=== PATIENT | male | born 1945 | race Caucasian/White ===

== ENCOUNTER 2016-07-20 09:41 | Observation (INO) | payer MEDICARE, OTHER ==
[~2016-07-20] VITALS: Ht 180.3 cm; Wt 93.3 kg
[2016-07-20 09:43] VITALS: BP 136/73; PULSE 111; RESP 28; O2SAT 97
--- NOTE | 2016-07-20 09:51 | ED.REPORT ---
HPI-General Illness Date of Service Jul 20, 2016 ED Provider: Dr. Fagan Pt is a 71 y/o male w/ a hx of adrenal insufficiency on [facility]cc steroid therapy presenting to the ED with his with multiple medical complaints onset 2 days ago. He c/o sore throat, nasal congestion, fever, shaking chills, chest tightness, pleuritic pain, shortness of breath, cough, diarrhea, generalized weakness. Pt denies nausea, vomiting, abdominal pain, rash. He recently doubled his doses of steroids 2 days ago because his PCP told him that if he felt ill he should do that. He has presented in adrenal crisis previously and believes his current condition to be similar but they believe he is early on in the disease process this episode. He has sick contacts with Influenza. 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 Physical Exam Vital Signs Vital Signs Date Time Temp Pulse Resp B/P Pulse Ox O2 Delivery O2 Flow Rate FiO2 07/20/16 11:03 91 27 108/49 92 Room Air 07/20/16 09:43 37.8 111 28 136/73 97 Room Air Initial VS: Reviewed, Vital signs abnormal Head / Eyes: Atraumatic, Normocephalic, PERRL Extremities: Vascular intact, Neuro intact, No swelling, No tenderness Psychiatric: Mood/affect normal, Behavior normal, Normal thought content General/Constitutional: Awake, Alert, Cooperative, Not toxic appearing Appearance / Presentation: Positive: Ill appearing/not toxic, Uncomfortable ENT: Atraumatic, Airway patent Mouth: Positive: Mucous membranes dry Pharynx / Tonsils / Uvula: Positive: Pharyngeal erythema, Negative: Tonsillar exudate L, Tonsillar exudate R, Tonsillar swelling L, Tonsillar swelling R Neck: Atraumatic, Supple, No meningismus, Full range of motion Respiratory / Chest: Atraumatic, Breath sounds NL, Breath sounds = bilat, No respiratory distress, No rales, No rhonchi, No wheezing, No retractions, No stridor, No chest tenderness, No chest wall deformity, No crepitus Subcutaneous battery packs presentfor deep brain stimulator Cardiovascular: Regular rhythm, Heart sounds NL, No gallop, No murmurs, No rubs , Cap refill not delayed, Peripheral circulation NL Heart Rate / Rhythm: Positive: Tachycardia Abdomen: Atraumatic, Soft, Non-tender, No guarding, No rebound, No palpable mass Ileostomy in RLQ with liquid stool present Well healed midline surgical scar Skin: Atraumatic, Color NL, No rash, Warm, Dry Neurologic: Oriented X3, Speech NL, No motor deficits, No sensory deficits Slightly tremulous Interpretation & Diagnostics Lab Results Interpretation Result Diagram: 07/20/16 1010 Test 07/20/16 10:10 Sodium Level 135mEq/L (134-144) Potassium Level 3.2mEq/L (3.5-5.2) Chloride Level 97mEq/L (97-108) Carbon Dioxide Level 22mmol/L (18-29) Blood Urea Nitrogen 8mg/dL (8-27) Creatinine 0.86mg/dL (0.76-1.27) Estimat Glomerular Filtration Rate 93mL/min (>59) Glucose Level 124mg/dL (60-99) Lactic Acid Level 1.4mmol/L (0.4-2.0) Calcium Level 8.2mg/dL (8.5-10.1) Magnesium Level 1.6mg/dL (1.6-2.6) Total Bilirubin 0.4mg/dL (0.0-1.2) Aspartate Amino Transf (AST/SGOT) 28U/L (0-50) Alanine Aminotransferase (ALT/SGPT) 27U/L (0-44) Alkaline Phosphatase 73U/L (25-160) Troponin T 0.010ug/L (0.0-0.011) Pro-B-Type Natriuretic Peptide 167.5pg/mL (0-376) Total Protein 6.9g/dL (6.4-8.4) Albumin 3.6g/dL (3.4-5.0) ECG Interpretation ECG Interpretation: Difficult to interpret due to poor baseline quality secondary to electrical interference Sinus rhythm rate 93 When compared to prior 03/07/14 no acute changes present Time: 10:31 Interpreted by: ED physician Normal ECG Interpretation: No acute ischemic changes, No change from prior ECGs X-Ray Chest Interpretation Chest Xray Interpretation: IMPRESSION: No acute cardiopulmonary findings. Dictated by: Willow Slater M.D. on 07/20/2016 at 11:09 Approved by: iWllow Slater M.D. on 07/20/2016 at 11:09 View: Portable, 1 view Interpretation / Wet Read by: Interpret - Radiologist Re-Eval/Medical Decision Med Decision/Clinical Course Pt is a 71 y/o male w/ a hx of adrenal insufficiency on termite helper steroid therapy presenting to the ED with his with multiple medical complaints onset 2 days ago. The majority of his symptoms are flulike in nature. He reports a history of adrenal crisis with similar illnesses and presented to the emergency department early this time due to concern that he could become significantly more sick. Upon arrival the patient is quite well-appearing though hemodynamically stable. EKG was obtained interpreted by myself as documented above. CXR: Obtained, reviewed and interpreted by myself shows no significant evidence of acute infiltrates, effusions or pneumothorax. Cardiac and mediastinal silhouette normal. No bony or soft tissue abnormalities. Meds given: Hydrocortisone IV 100 mg, 2L fluid bolus CBC: Obtained as documented above CMP: Potassium of 3.2 otherwise unremarkable Negative troponin Rapid flu positive for: Influenza A Presentation consistent with influenza in patient who is more susceptible to severe illness in the setting of his underlying adrenal insufficiency. Given his presentation I immediately treated him with a 2 L saline bolus as well as stress dose steroids. The patient reported symptomatic improvement. At this time he is hemodynamically stable and nontoxic in appearance. The x-ray per radiologist interpretation demonstrated bibasilar atelectasis versus pneumonia though overall patient's symptoms are not convincing for bacterial pneumonia at this time. Therefore, antibiotics withheld. Patient started on Tamiflu. Discussed with admitting hospitalist and transferred to the [facility] for further management in stable condition. Source of Hx: Old records Time of Eval: 10:48 Patient Status: Condition improved Re-Evaluation/Progress Note: Pt rechecked. Pt informed of need for admission. Pt understands and agrees with plan for admission. All questions addressed. Consultation : Consulted With: Hospitalist Call Returned at: 11:04 Product Marketing Engineer: Will see patient, Agrees with eval, Agrees with plan, Accepts admit Counseled Regarding: Diagnosis, Lab results, Need for admission Discharge & Departure Primary Impression: Adrenal crisis Additional Impressions: Influenza A Myalgia Cough Chest discomfort Generalized weakness Adrenal insufficiency Disposition: ADMITTED TO HOSPITAL Discharge Condition All VS Reviewed: Yes Condition: Stable Referrals: NOPCP (PCP) Crit Care Except Billable Proc Time Spent: 105-134 minutes Services Performed: Patient management by me, Time spent at bedside, Reviewing test results, Reviewing imaging, Discussing patient care, Documentation in record, Time with fam/surrogate Scribe Attestation Portions of this note were transcribed by Lopez Thorne. I, Dr. Fagan personally performed the history, physical exam and medical decision-making; I reviewed and confirmed the accuracy of the information in the transcribed note. Signed by Destiny Millard, 07/20/16 - 2299 Ravi Fagan MD Jul 20, 2016 09:51 LOPEZ THORNE Jul 20, 2016 10:09
[2016-07-20] MEDS ORDERED: 0.9% Sodium Chloride 1,000 ML IV ONE ×2 (10:07→10:10)
[2016-07-20] MEDS ORDERED: Ondansetron 2 mg/mL 2 mL Inj IVPUSH PRN ×2 (10:10→15:40)
[2016-07-20] MEDS ORDERED: Alum-Mag Hydrox-Simeth 30 mL Suspension PO PRN ×2 (10:10→15:40)
[2016-07-20] MEDS ORDERED: Hydrocortisone 50 mg/mL 2 mL Inj IVPUSH ONE (10:10)
[2016-07-20 10:20] LABS: BASOPHILS % (AUTO) 0.4 % (0-3); EOSINOPHILS % (AUTO) 0.7 % (0-5); MONOCYTES % (AUTO) 12.9 % (4-12); Mean Corpuscular Hemoglobin 33.5 pg (27.0-35.0); Mean Corpuscular Volume 96.5 fL (81-100); NEUTROPHILS % (AUTO) 75.5 % (40-74); Platelet Count 132 bil/L (150-400)
[2016-07-20 10:42] LABS: TROPONIN T 0.01 ug/L (0.0-0.011)
[2016-07-20 10:53] LABS: Magnesium 1.6 mg/dL (1.6-2.6)
[2016-07-20 11:03] VITALS: BP 108/49; PULSE 91; RESP 27; O2SAT 92
--- NOTE | 2016-07-20 11:11 | DRSVH ---
PROCEDURE: X-RAY CHEST ONE VIEW, PORTABLE ([id number]) INDICATIONS: cough TECHNIQUE: One view of the chest was acquired. COMPARISON: [facility], , CHEST 1VW (PORTABLE), 03/07/2014, 12:45. FINDINGS: Surgical changes and devices: Bilateral neural stimulators are redemonstrated. Lungs and pleura: No pleural effusions or pneumothorax. Lungs are clear. Mediastinum: Mediastinal contours appear normal. Heart size is normal. Bones and chest wall: No suspicious bony lesions. Overlying soft tissues appear unremarkable. IMPRESSION: No acute cardiopulmonary findings. Dictated by: Willow Slater M.D. on 07/20/2016 at 11:09 Approved by: Willow Slater M.D. on 07/20/2016 at 11:09
--- NOTE | 2016-07-20 12:10 | NUR ---
Admission Patient arrived to unit via gurney. Patient alert and oriented at time of admission. Patient reporting increasing shortness of breath with coughing and chest soreness , accompanied by chest tightness, chills and nausea. Patient has an ileostomy (due to ulcerative colitis) and was concerned that there was a change in the color and consistency of his stool. Patient positive for influenza A and has been placed in droplett/contact precautions. Patient also reports an essential tremor with a "brain stimulator" in both Rt and Lt upper chest with leads running to the brain.
[2016-07-20 12:17] VITALS: BP 113/62; PULSE 77; RESP 18; O2SAT 96
[2016-07-20] MEDS ORDERED: Polyethylene Glycol (PEG) 17 Gm Powder PO PRN (15:40)
[2016-07-20] MEDS: Hydrocortisone 50 mg/mL 2 mL Inj IVPUSH SCH (16:32)
[2016-07-20] MEDS: 0.9% Sodium Chloride 1,000 ML IV SCH (16:35)
[2016-07-20 16:56] VITALS: BP 119/68; PULSE 70; RESP 18; O2SAT 97
--- NOTE | 2016-07-20 17:09 | PCM.HPMED ---
Subjective Date of Service Jul 20, 2016 Primary Provider: Admitting Physician: Bakari Stallings DO Primary Care Physician: Erik Attending Physician: Bakari Stallings DO Admit Status: From the Emergency Department Chief Complaint: Flu-like symptoms History of Present Illness: 71-year-old male with a history of adrenal insufficiency with long-term steroid use presents to the emergency department with sore throat, nasal congestion, fever, shaking chills, chest tightness, shortness of breath, cough, diarrhea into his ostomy, and generalized weakness that started 2 days ago. Patient lives in a 55 and older community on they had a get together, since that time multiple residents have gotten sick with influenza. The symptoms he is currently feeling are similar to that of an adrenal crisis he has had previously. His last crisis was over 8 years ago. Today he has felt nauseous but denies vomiting and abdominal pain. Review of Systems: A comprehensive review of systems was conducted with the patient and found to be negative except as above in the History of Present Illness. Allergies Coded Allergies: Penicillins (Verified Allergy, Unknown, 07/20/16) codeine (Verified Allergy, Unknown, 07/20/16) Home Medications Hydrocortisone by mouth 20 mg every morning, 5 mg every evening Fludrocortisone 0.2 mg every morning PMH Adrenal insufficiency since 1973 Ulcerative colitis status post total colectomy in 1980 Essential tremor status post deep brain stimulator Surgical History Total colectomy Deep brain stimulator placement Family History Noncontributory Social History Hx Alcohol Use: Yes Alcoholic Drinks Per Day: 2-6 Hx Substance Use: No Hx Tobacco Use: No Smoking Status: Former Smoker (for a couple years in the 1960s) Living Arrangement: with Family Exam Vital Signs Vital Sign - Last Date Time Temp Pulse Resp B/P Pulse Ox O2 Delivery O2 Flow Rate FiO2 07/20/16 13:28 Supplement Oxygen 07/20/16 12:17 38.1 77 18 113/62 96 2.00 Exam General: No acute distress, well-developed, well-nourished, appropriately interactive HEENT: Normocephalic, atraumatic. External ears without defect. Pupils equal, round, and reactive to light and accommodation. Anicteric sclerae, moist conjunctivae, and no lid lag. Oropharynx free of erythema with moist mucosa. Neck: Supple with full range of motion. No jugular venous distension. No lymphadenopathy or thyromegaly. Cardiovascular: Regular rate and rhythm with no murmurs, rubs, or gallops appreciated, deep brain stimulator on chest bilaterally with associated scars Pulmonary: Clear to auscultation bilaterally with no crackles, wheezes, or rhonchi. Normal respiratory effort with no use of accessory muscles. Abdomen: Bowel tones present. Soft, nontender, nondistended. No hepatosplenomegaly or masses appreciated. Vertical midline surgical scar, ostomy bag on the right lower quadrant Extremities: No clubbing, cyanosis, edema, or lymphadenopathy appreciated. Skin: Normal temperature, turgor, and texture; no rash, ulcers, or subcutaneous nodules appreciated. Neurological: Cranial nerves grossly intact. Normal muscle strength, tone, and bulk. No known gait impairment. Mild left-sided mouth droop and slurred speech secondary to deep brain stimulation Psychiatric: Normal mood and affect. Alert and oriented to person, place, and time. Lab and Diagnostics Result Diagram: 07/20/16 1010 07/20/16 1010 Microbiology Influenza A positive Influenza B negative Assessment & Plan 1. Adrenal insufficiency acute on chronic present on admission 100 mg hydrocortisone given in emergency department 50 mg IV hydrocortisone every 8 hours. This first dose can return to maintenance in the next day or 2 based on patient's clinical course Fludrocortisone 0.1 mg every morning. This dose is decreased from maintenance dose due to increased dose of hydrocortisone. Dosing of steroids discussed with sfdc developer Dr. Jordan 2. Influenza A present on admission Supportive care NS at 75 mL per hour until patient has adequate oral intake. Tessalon Perles for cough 3. Ileostomy Ostomy care as needed Patient is admitted under observation status with expected length of stay less than 2 midnights due to severity of presenting symptoms, risk of adverse event, and complexity of treatment plan. Pain Evaluation: Adequate Pain Control GI Prophylaxis: Not indicated VTE Prophylaxis: SCDs VTE Mechanical Devices: Intermittant Pneumatic CD Resuscitation Status: CPR: Attempt Resuscitation Time spent 55 minutes Attending Statement I have seen and evaluated patient at bedside in addition to directly supervising care provided by resident physician. 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 Treated with antiviral therapy and steroid supplementation. Lowered dosage of Fludrocortisone reflects a compensation due to increased dosage of hydrocortisone. Pt likely to stay greater than 2 midnights, admission is in patient status. Kalie Valente DO Jul 20, 2016 16:31 Bakari Stallings DO Jul 20, 2016 21:54
[2016-07-20] MEDS ORDERED: ATRV10T PO (17:43)
[2016-07-20] MEDS ORDERED: HYDR5TAB2 PO ×2 (17:43)
[2016-07-20] MEDS ORDERED: OMEP20CA11 PO (17:43)
[2016-07-20] MEDS ORDERED: ZINC50TA4 PO (17:43)
[2016-07-20] MEDS ORDERED: CHOL10008 PO (17:43)
[2016-07-20] MEDS ORDERED: CYAN10008 PO (17:43)
[2016-07-20] MEDS ORDERED: CA C1TAB83 PO ×2 (17:43)
[2016-07-20] MEDS ORDERED: FLUD0.1T PO (17:43)
[2016-07-20] MEDS ORDERED: RANI300C PO (17:43)
[2016-07-20] MEDS ORDERED: Potassium Chloride 20 mEq SR Tablet PO ONE (19:55)
[2016-07-20 21:10] VITALS: PULSE 67
[2016-07-20 21:36] VITALS: BP 105/52; PULSE 63; RESP 18; O2SAT 97
[2016-07-21] MEDS: Hydrocortisone 50 mg/mL 2 mL Inj IVPUSH SCH ×2 (01:55→10:45)
[2016-07-21 04:47] VITALS: BP 126/70; PULSE 67; RESP 20; O2SAT 94
[2016-07-21] MEDS: 0.9% Sodium Chloride 1,000 ML IV SCH (04:56)
--- NOTE | 2016-07-21 05:30 | NUR ---
Uneventful Pt denies chest pain, sob, n/v, abd discomfort. Although having intermittent cough but pt states it's not too bad. VSS, and pt has been afebrile overnight.
[2016-07-21 07:37] LABS: BASOPHILS % (AUTO) 0.2 % (0-3); EOSINOPHILS % (AUTO) 0 % (0-5); MONOCYTES % (AUTO) 10.8 % (4-12); Mean Corpuscular Hemoglobin 33.4 pg (27.0-35.0); Mean Corpuscular Volume 97.2 fL (81-100); NEUTROPHILS % (AUTO) 78.8 % (40-74); Platelet Count 122 bil/L (150-400)
[2016-07-21 11:23] VITALS: PULSE 74
--- NOTE | 2016-07-21 14:29 | NUR ---
Case Management: OLGUIN explained. Patient signed and copy given. Signed copy in chart. [email or web address]>
--- NOTE | 2016-07-21 14:44 | NUR ---
Social Work-initial assessment/ readiness for discharge: Data:See initial assessment. Pt is a 71 y/o male who was admitted on 07/20/16 for adrenal crisis per H&P. Pt's insurance is [employer] and PCP is Dr. Leandro MD.EMR Reviewed. Pt's readmission score is 1. SW met with pt at bedside to discuss discharge planning, SW role explained. Pt resides at home with his where he remains independent with ADLS. Pt drives and does not use any DME. Pt has no HH or SNF history. Pt has no continuous churn buttermaker care insurance or VA benefits. SW discussed DPOA/advanced directive, pt has completed this, SW encouraged a copy to be brought into the hospital. Pt states he will likely take a taxi home at discharge because his is having eye surgery. Per RN notes, pt has been up independent in his room. SW provided phone number and plan on white board in room. No anticipated discharge needs. SW will continue to follow if needs arise. Assessment:Pt who is independent at baseline. Plan:Pt to discharge home when medically stable via POV. No anticipated discharge needs. SW will continue to follow if needs arise. ELISA Ramirez Addendum: 07/21/16 at 1449 by GIANNA HEAD Amended: Links added.
[2016-07-21 16:08] VITALS: BP 138/73; PULSE 74; RESP 18; O2SAT 95
--- NOTE | 2016-07-21 16:25 | PCM.PNMED ---
Subjective Date of Service Jul 21, 2016 Subjective 71-year-old male with a history of adrenal insufficiency with long-term steroid use presents to the emergency department with sore throat, nasal congestion, fever, shaking chills, chest tightness, shortness of breath, cough, diarrhea into his ostomy, and generalized weakness that started 2 days prior to admission Exam Vital Signs Vital Sign - Last Date Time Temp Pulse Resp B/P Pulse Ox O2 Delivery O2 Flow Rate FiO2 07/21/16 04:47 36.9 67 20 126/70 94 Room Air 07/20/16 12:17 2.00 Intake and Output 07/20/16 07/20/16 07/21/16 Cumulative From/Thru 15:00 23:00 07:00 07/20/16 09:43 - 07/21/16 06:10 Intake Total 700 ml 1053 ml 1753 ml Output Total 600 ml 750 ml 1350 ml Balance 100 ml 303 ml 403 ml Intake Oral 700 ml 200 ml 900 ml IV Total 853 ml 853 ml Output Urine Total 350 ml 750 ml 1100 ml Stool Total 250 ml 250 ml # Bowel Movements 0 0 Exam General: No acute distress, well-developed, well-nourished, appropriately interactive HEENT: Normocephalic, atraumatic. External ears without defect. Pupils equal, round, and reactive to light and accommodation. Anicteric sclerae, moist conjunctivae, and no lid lag. Oropharynx free of erythema with moist mucosa. Neck: Supple with full range of motion. No jugular venous distension. No lymphadenopathy or thyromegaly. Cardiovascular: Regular rate and rhythm with no murmurs, rubs, or gallops appreciated, deep brain stimulator on chest bilaterally with associated scars Pulmonary: Clear to auscultation bilaterally with no crackles, wheezes, or rhonchi. Normal respiratory effort with no use of accessory muscles. Abdomen: Bowel tones present. Soft, nontender, nondistended. No hepatosplenomegaly or masses appreciated. Vertical midline surgical scar, ostomy bag on the right lower quadrant Extremities: No clubbing, cyanosis, edema, or lymphadenopathy appreciated. Skin: Normal temperature, turgor, and texture; no rash, ulcers, or subcutaneous nodules appreciated. Neurological: Cranial nerves grossly intact. Normal muscle strength, tone, and bulk. No known gait impairment. Mild left-sided mouth droop and slurred speech secondary to deep brain stimulation Psychiatric: Normal mood and affect. Alert and oriented to person, place, and time. Lab and Diagnostics Result Diagram: 07/20/16 1010 07/20/16 1010 Microbiology Influenza A positive Influenza B negative Assessment & Plan 71-year-old male with a history of adrenal insufficiency with long-term steroid use presents to the emergency department and found to have influenza A and adrenal insufficiency 1. Adrenal insufficiency acute on chronic present on admission 100 mg hydrocortisone given in emergency department 50 mg IV hydrocortisone every 8 hours. This first dose can return to maintenance in the next day or 2 based on patient's clinical course Fludrocortisone 0.1 mg every morning. This dose is decreased from maintenance dose due to increased dose of hydrocortisone. Dosing of steroids discussed with application administrator Dr. Jordan Patient changed back to home in steroid dosage this afternoon, we will monitor patient on home steroid dose in preparation for discharge tomorrow 2. Influenza A present on admission Supportive care Tamiflu NS discontinued Tessalon Perles for cough 3. Ileostomy Ostomy care as needed Disposition. Patient likely to discharge tomorrow based on response to home steroid dosing. Pain Evaluation: Adequate Pain Control GI Prophylaxis: Proton Pump Inhibitor, Not indicated VTE Prophylaxis: SCDs VTE Mechanical Devices: Intermittant Pneumatic CD Resuscitation Status: CPR: Attempt Resuscitation Attending Statement The patient was seen and examined together with Dr. Valente on 07/21/2016 and I agree with the history, exam and plan as outlined in the note above. Kalie Valente DO Jul 21, 2016 06:57 Sanjeev Saavedra MD Jul 22, 2016 10:30
--- NOTE | 2016-07-21 19:36 | NUR ---
Dayshift Pt updated with care plan, planning to discharging per MD tomorrow. Tele removed. Reports no pain, no objective s/sx of distress. Cooperative with plan of care.
[2016-07-21] MEDS ORDERED: Hydrocortisone 10 mg Tablet PO SCH (20:30)
[2016-07-21 21:44] VITALS: BP 148/69; PULSE 75; RESP 18; O2SAT 97
[2016-07-22 01:10] VITALS: BP 134/76; PULSE 65; RESP 18; O2SAT 98
[2016-07-22 04:32] VITALS: BP 137/74; PULSE 63; RESP 18; O2SAT 96
[2016-07-22] MEDS ORDERED: Pantoprazole 40 mg ER24 Tablet PO SCH (06:30)
--- NOTE | 2016-07-22 06:32 | NUR ---
Uneventful Pt has been pleasant and cooperative with care. Denies chest pain, sob, n/v or abd discomfort. Pt do ostomy care independently. HS meds administered as scheduled. Hourly rounding done, call light within reach.
[2016-07-22] MEDS ORDERED: OSLT75C PO (08:12)
[2016-07-22] MEDS ORDERED: BENZ100C8 PO (08:12)
[2016-07-22] MEDS ORDERED: Hydrocortisone 10 mg Tablet PO SCH (08:30)
--- NOTE | 2016-07-22 09:45 | PCM.DIMED ---
Kalie Valente DO 07/22/16 0655: Discharge Instructions Date of Service Jul 22, 2016 Dates of Hospitalization Jul 20, 2016 at 11:10 Discharge Diagnosis Discharge Diagnosis 1. Influenza A 2. Adrenal insufficiency Medication Instructions Continue to take your maintenance doses of fludrocortisone and hydrocortisone. Take Tamiflu tonight and twice a day for 2 more days for a total course of 5 days. Take benzonatate as needed for cough up to 3 times a day. Test Results Influenza a positive, influenza B- Chest x-ray shows no acute cardiopulmonary findings Diet Heart Healthy Activity No restrictions Call your provider Fever or Chills, Shortness of breath, Vomitting, Excessive diarrhea, Weakness ( unilateral) Patient Instructions Take your medications as prescribed above. Limit your contacts for the next few days and always practice good hand hygiene by washing your hands regularly including before and after you eat. Follow-up plan See her primary care provider within the next 2 weeks. Your flu symptoms should have resolved by this time. Follow-up Provider: Eric Reeves MD Follow-up with PCP in: 2 weeks Sanjeev Saavedra MD 07/22/16 1030: Kalie Valente DO Jul 22, 2016 06:55 Sanjeev Saavedra MD Jul 22, 2016 10:30
--- NOTE | 2016-07-22 13:41 | NUR ---
Social Work-discharge: data:EMR Reviewed. Pt is on day 2 of hospitalization for adrenal crisis per H&P. Pt is medically stable to discharge home today. Pt has been up independent in his room. No discharge needs identified. Pt's family to provide transport home today.All updated and agreeable to plan. Assessment:Pt who is independent at baseline. Plan:Pt to discharge home today via POV. No discharge needs identified.All updated and agreeable to plan. ELISA Ramirez
--- NOTE | 2016-07-22 13:55 | NUR ---
Discharge Discharge paperwork, care notes, and new medications reviewed and signed. IV DCd intact, all belongings with patient, no s/sx of distress, VSS. Pt requests to walk out on foot, steady/strong on feet, no notable deficits - pt escorted out of unit at 1348.
--- NOTE | 2016-07-22 18:15 | PCM.DC.MED ---
Discharge Summary Date of Service Jul 22, 2016 Dates of Hospitalization Date of Hospital Admission Jul 20, 2016 at 11:10 Date of Discharge: Jul 22, 2016 Providers: Admitting Physician: Bakari Stallings DO Primary Care Physician: Erik Attending Physician: Bakari Stallings DO Diagnosis at Time of Discharge Diagnosis at Time of Discharge 1. Influenza A 2. Adrenal insufficiency Procedures XRay, CTs & MRIs PROCEDURE: X-RAY CHEST ONE VIEW, PORTABLE ([id number]) IMPRESSION: No acute cardiopulmonary findings. Dictated by: Willow Slater M.D. on 07/20/2016 at 11:09 Brief History History of present illness on admission: 71-year-old male with a history of adrenal insufficiency with long-term steroid use presents to the emergency department with sore throat, nasal congestion, fever, shaking chills, chest tightness, shortness of breath, cough, diarrhea into his ostomy, and generalized weakness that started 2 days ago. Patient lives in a 55 and older community on they had a get together, since that time multiple residents have gotten sick with influenza. The symptoms he is currently feeling are similar to that of an adrenal crisis he has had previously. His last crisis was over 8 years ago. Today he has felt nauseous but denies vomiting and abdominal pain. Hospital Course 71-year-old male with a history of adrenal insufficiency with long-term steroid use presents to the emergency department and found to have influenza A and adrenal insufficiency 1. Adrenal insufficiency acute on chronic present on admission 100 mg hydrocortisone given in emergency department 50 mg IV hydrocortisone was given every 8 hours. Patient recovered quickly and returned to home dose of 20 mg by mouth every a.m. and 5 mg by mouth every PM. Fludrocortisone 0.2 mg every morning. If patient would have been on stress dosing of hydrocortisone for a longer time fludrocortisone would have been decreased to 0.1 mg daily. Dosing of steroids discussed with securities teller Dr. Jordan Patient monitored on home dosage of steroids before discharge 2. Influenza A present on admission Supportive care was provided Tamiflu twice a day for 5 days Tessalon Perles for cough 3. Ileostomy Ostomy was provided as needed Exam Vital Signs (Last) Date Time Temp Pulse Resp B/P Pulse Ox O2 Delivery O2 Flow Rate FiO2 07/22/16 04:32 36.9 63 18 137/74 96 Room Air 26/17 12:17 2.00 Exam General: No acute distress, well-developed, well-nourished, appropriately interactive HEENT: Normocephalic, atraumatic. External ears without defect. Anicteric sclerae, moist conjunctivae, and no lid lag. Oropharynx free of erythema with moist mucosa. Neck: Supple with full range of motion. Cardiovascular: Regular rate and rhythm with no murmurs, rubs, or gallops appreciated, deep brain stimulator on chest bilaterally with associated scars Pulmonary: Mild diffuse crackles that clear with deep breaths, No wheezes, or rhonchi. Normal respiratory effort with no use of accessory muscles. Abdomen: Bowel tones present. Soft, nontender, nondistended. No hepatosplenomegaly or masses appreciated. Vertical midline surgical scar, ostomy bag on the right lower quadrant Extremities: No clubbing, cyanosis, edema, or lymphadenopathy appreciated. Skin: Normal temperature, turgor, and texture; no rash, ulcers, or subcutaneous nodules appreciated. Neurological: Cranial nerves grossly intact. Normal muscle strength, tone, and bulk. No known gait impairment. Mild left-sided mouth droop and slurred speech secondary to deep brain stimulation Psychiatric: Normal mood and affect. Alert and oriented to person, place, and time. Test 07/20/16 10:10 07/21/16 07:00 Lactic Acid Level 1.4mmol/L (0.4-2.0) Magnesium Level 1.6mg/dL (1.6-2.6) Troponin T 0.010ug/L (0.0-0.011) Pro-B-Type Natriuretic Peptide 167.5pg/mL (0-376) White Blood Count 5.4th/mm3 (3.8-10.1) Red Blood Count 4.34mil/mm3 (4.40-5.80) Hemoglobin 14.5g/dL (13.8-17.2) Hematocrit 42.2% (41.0-50.0) Mean Corpuscular Volume 97.2fL (81-100) Mean Corpuscular Hemoglobin 33.4pg (27.0-35.0) Mean Corpuscular Hemoglobin Concent 34.4% (32.0-37.0) Red Cell Distribution Width 11.7% (12.3-15.4) Platelet Count 122bil/L (150-400) Neutrophils (%) (Auto) 78.8% (40-74) Lymphocytes (%) (Auto) 10.0% (14-46) Monocytes (%) (Auto) 10.8% (4-12) Eosinophils (%) (Auto) 0% (0-5) Basophils (%) (Auto) 0.2% (0-3) Sodium Level 138mEq/L (134-144) Potassium Level 3.9mEq/L (3.5-5.2) Chloride Level 103mEq/L (97-108) Carbon Dioxide Level 22mmol/L (18-29) Blood Urea Nitrogen 7mg/dL (8-27) Creatinine 0.65mg/dL (0.76-1.27) Estimat Glomerular Filtration Rate 128mL/min (>59) Glucose Level 113mg/dL (60-99) Calcium Level 8.2mg/dL (8.5-10.1) Total Bilirubin 0.3mg/dL (0.0-1.2) Aspartate Amino Transf (AST/SGOT) 24U/L (0-50) Alanine Aminotransferase (ALT/SGPT) 24U/L (0-44) Alkaline Phosphatase 66U/L (25-160) Total Protein 6.2g/dL (6.4-8.4) Albumin 3.5g/dL (3.4-5.0) Microbiology Results Influenza A positive Influenza B negative Discharge Medications Discharge Medications Atorvastatin (Lipitor) 10 Mg Tab 10 MG PO DAILY (Reported) Ca Carbonate/Vitamin D3/Vit K (Calcium + D Soft Chewable Tab) 1 Each Tab.chew 2 EACH PO QAM (Reported) Ca Carbonate/Vitamin D3/Vit K (Calcium + D Soft Chewable Tab) 1 Each Tab.chew 1 EACH PO HS (Reported) Cholecalciferol (Vitamin D3) (Vitamin D3) 1,000 Unit Tab.chew 1,000 UNIT PO DAILY (Reported) Cyanocobalamin (Vitamin B-12) (Vitamin B-12) 1,000 Mcg Tablet 1,000 MCG PO DAILY (Reported) Fludrocortisone Acetate (Fludrocortisone Acetate) 0.1 Mg Tablet 0.2 MG PO QAM ( Reported) Hydrocortisone (Hydrocortisone) 5 Mg Tablet 20 MG PO QAM (Reported) Hydrocortisone (Hydrocortisone) 5 Mg Tablet 5 MG PO QPM (Reported) Oseltamivir Phosphate (Tamiflu) 10 Cap/Pkg Capsule 75 MG PO BID Prescribed by: KALIE STEWART DO Ranitidine (Ranitidine) 300 Mg Capsule 300 MG PO QAM (Reported) Zinc Gluconate (Zinc) 50 Mg Tablet 50 MG PO DAILY (Reported) As needed Benzonatate (Benzonatate) 100 Mg Capsule 100 MG PO TID PRN PRN For Cough Prescribed by: KALIE STEWART DO Omeprazole (Omeprazole) 20 Mg Capsule.dr 20 MG PO DAILY PRN PRN For Dyspepsia or Heartburn (Reported) Followup Plan Disposition: Discharge home Follow-up plan See your primary care provider within the next 2 weeks. Your flu symptoms should have resolved by this time. Discharge Diet: No restrictions Discharge Activity: No restrictions Patient Instructions Take your medications as prescribed above. Limit your contacts for the next few days and always practice good hand hygiene by washing your hands regularly including before and after you eat. Follow-up Provider: Eric Reeves MD Follow-up with PCP in: 2 weeks Attending Statement The patient was seen and examined together with Dr. Stewart on 07/22/2016 and I agree with the history, exam and plan as outlined in the note above. Kalie Stewart DO Jul 22, 2016 06:55 Sanjeev Saavedra MD Jul 23, 2016 10:30
== END 2016-07-22 13:35 | disposition home or self-care (01) ==
LOC: SED 09:41 → MPC 11:10 → INTOOBSV 11:10
PROVIDERS: ADMIT Family Medicine; ATTEND Family Medicine
DX: J11.1 Influenza due to unidentified influenza virus with other respiratory manifestations (principal); E27.40 Unspecified adrenocortical insufficiency; Z79.52 Long term (current) use of systemic steroids; G25.0 Essential tremor; Z93.2 Ileostomy status; K51.90 Ulcerative colitis, unspecified, without complications
CPT/HCPCS: 36415; 71010; 80053; 83605; 83735; 83880; 84484; 85025; 87804; 93005; 96361; 96374; 96375; 99291; 99292; G0378; J1720; J2405; J7030